=== PATIENT | male | born 1940 | race Caucasian/White ===

== ENCOUNTER 2017-10-08 03:24 | Inpatient (IN) | payer MEDICARE, BC ==
[~2017-10-08] VITALS: Ht 170.2 cm; Wt 88.0 kg
[2017-10-08 05:16] VITALS: BP 138/82
[2017-10-08] MEDS ORDERED: MAGNESIUM HYDROXIDE 30 ML UDC PO PRN (05:30)
[2017-10-08] MEDS ORDERED: MAG HYDROX/AL HYDROX/SIMETH 30 ML UDC PO PRN (05:30)
[2017-10-08] MEDS ORDERED: PIOG15TA8 PO (05:45)
[2017-10-08] MEDS ORDERED: MUPI22OI2 TP (05:45)
[2017-10-08] MEDS ORDERED: HYDR-3974 PO (05:45)
[2017-10-08] MEDS ORDERED: MAGN400T6 PO (05:45)
[2017-10-08] MEDS ORDERED: GLIM4TAB2 PO (05:45)
[2017-10-08] MEDS ORDERED: RIVA10TA PO (05:45)
[2017-10-08] MEDS ORDERED: POTA10CA43 PO (05:45)
[2017-10-08] MEDS ORDERED: SITA100T PO (05:45)
[2017-10-08] MEDS ORDERED: FURO40TA5 PO (05:45)
[2017-10-08 08:00] VITALS: BP 161/98
[2017-10-08] MEDS ORDERED: POTA-88 PO (10:06)
[2017-10-08] MEDS ORDERED: METF500T4 PO (10:06)
[2017-10-08] MEDS ORDERED: ATOR40TA PO (10:06)
[2017-10-08] MEDS ORDERED: CARB200T8 PO (10:07)
[2017-10-08 16:00] VITALS: BP 131/75
[2017-10-08] MEDS ORDERED: HYDROCODONE/APAP 5/325MG 1 EACH TABLET PO PRN (16:00)
[2017-10-08] MEDS ORDERED: METFORMIN 500 MG TABLET PO SCH (17:00)
[2017-10-08] MEDS: CARBAMAZEPINE 200 MG TABLET PO SCH (17:22)
[2017-10-08] MEDS: FUROSEMIDE 40 MG TABLET PO SCH (17:22)
[2017-10-08] MEDS: MAGNESIUM OXIDE 400 MG TABLET PO SCH (17:22)
[2017-10-08] MEDS: PIOGLITAZONE HCL 15 MG TABLET PO SCH (17:22)
[2017-10-08] MEDS: ATORVASTATIN 40 MG TABLET PO SCH (17:22)
[2017-10-08] MEDS: GLIMEPIRIDE 4 MG TABLET PO SCH (17:22)
[2017-10-08] MEDS: RIVAROXABAN 10 MG TABLET PO SCH (17:23)
[2017-10-08 17:57] LABS: CALCIUM, SERUM 8.9 mg/dL (8.5-10.1); CARBON DIOXIDE 27 mmol/L (21-32); CHLORIDE 104 mmol/L (98-107); CREATININE 1.4 mg/dL (0.6-1.3); GLUCOSE 265 mg/dL (74-106); POTASSIUM 4.6 mmol/L (3.5-5.1); SODIUM SERUM 140 mmol/L (136-145); UREA NITROGEN, BLOOD 26 mg/dL (7-18)
[2017-10-08 20:00] VITALS: BP 102/69
[2017-10-08] MEDS: TEMAZEPAM 7.5 MG CAPSULE PO PRN (23:54)
[2017-10-09 07:58] LABS: BASOPHILS % (AUTO) 0.1 % (0.0-2.0); EOSINOPHILS # (AUTO) 0.2 /CMM (0.0-0.7); EOSINOPHILS % (AUTO) 2.6 % (0.0-6.0); HEMATOCRIT 43 % (39-51); HEMOGLOBIN 14.7 g/dL (13.5-17.5); LYMPHOCYTES # (AUTO) 1.8 /CMM (0.8-4.8); LYMPHOCYTES % (AUTO) 23.5 % (20.0-44.0); MEAN CORPUSCULAR HEMOGLOBIN 35 PG (26.0-33.0); MEAN CORPUSCULAR HGB CONC 35 g/dl (31.0-36.0); MEAN CORPUSCULAR VOLUME 101 fL (80-96); MONOCYTES # (AUTO) 0.8 /CMM (0.1-1.30); MONOCYTES % (AUTO) 10.7 % (2.0-12.0); NEUTROPHILS # (AUTO) 4.8 /CMM (1.8-8.9); NEUTROPHILS % (AUTO) 63.1 % (43.0-81.0); PLATELET COUNT (AUTO) 288 /CMM (150-450); RDW COEFFICIENT OF VARIATION 14.1 (11.5-15.0); RED BLOOD CELL COUNT(AUTO) 4.21 MIL/uL (4.5-6.0); WHITE BLOOD COUNT (AUTO) 7.6 K/uL (4.3-11.0)
[2017-10-09 08:00] VITALS: BP 148/74
[2017-10-09 08:00] LABS: CREATININE 1.5 mg/dL (0.6-1.3)
[2017-10-09 08:15] LABS: CHOLESTEROL 141 mg/dL (<200); HDL CHOLESTEROL 48 mg/dL (40-60); LDL 70 mg/dL (0-99); TRIGLYCERIDES 176 mg/dL (30-150)
[2017-10-09 08:16] LABS: ALANINE AMINOTRANSFERASE 30 U/L (12-78); ALBUMIN 2.7 g/dL (3.4-5.0); ALKALINE PHOSPHATASE 81 U/L (46-116); ASPARTATE AMINOTRANSFERASE 25 U/L (15-37); BILIRUBIN,TOTAL 0.4 mg/dL (0.2-1.0); CALCIUM, SERUM 8.9 mg/dL (8.5-10.1); CARBON DIOXIDE 25 mmol/L (21-32); CHLORIDE 105 mmol/L (98-107); CREATININE 1.5 mg/dL (0.6-1.3); GLUCOSE 217 mg/dL (74-106); POTASSIUM 3.5 mmol/L (3.5-5.1); SODIUM SERUM 142 mmol/L (136-145); TOTAL PROTEIN, SERUM 7.2 g/dL (6.4-8.2); UREA NITROGEN, BLOOD 26 mg/dL (7-18)
[2017-10-09] MEDS: PIOGLITAZONE HCL 15 MG TABLET PO SCH (09:16)
[2017-10-09] MEDS: GLIMEPIRIDE 4 MG TABLET PO SCH (09:16)
[2017-10-09] MEDS: POTASSIUM CHLORIDE 20 MEQ TAB.PRT.SR PO SCH (09:16)
[2017-10-09] MEDS: LINAGLIPTIN 5 MG TABLET PO SCH (09:16)
[2017-10-09] MEDS: CARBAMAZEPINE 200 MG TABLET PO SCH ×3 (09:16→16:20)
[2017-10-09] MEDS: FUROSEMIDE 40 MG TABLET PO SCH (09:16)
[2017-10-09] MEDS: MAGNESIUM OXIDE 400 MG TABLET PO SCH (09:17)
[2017-10-09 16:00] VITALS: BP 109/73
[2017-10-09] MEDS: risperiDONE 1 MG TABLET PO SCH (16:20)
[2017-10-09] MEDS: RIVAROXABAN 10 MG TABLET PO SCH (16:22)
[2017-10-09] MEDS: ATORVASTATIN 40 MG TABLET PO SCH (17:04)
[2017-10-09 20:00] VITALS: BP 106/67
[2017-10-09] MEDS: TEMAZEPAM 7.5 MG CAPSULE PO PRN (22:02)
[2017-10-10] MEDS: GLIMEPIRIDE 4 MG TABLET PO SCH (08:15)
[2017-10-10] MEDS: FUROSEMIDE 40 MG TABLET PO SCH (08:15)
[2017-10-10] MEDS: PIOGLITAZONE HCL 15 MG TABLET PO SCH (08:15)
[2017-10-10] MEDS: POTASSIUM CHLORIDE 20 MEQ TAB.PRT.SR PO SCH (08:16)
[2017-10-10] MEDS: MAGNESIUM OXIDE 400 MG TABLET PO SCH (08:16)
[2017-10-10] MEDS: LINAGLIPTIN 5 MG TABLET PO SCH (08:16)
[2017-10-10] MEDS: risperiDONE 1 MG TABLET PO SCH ×3 (08:16→21:21)
[2017-10-10] MEDS: CARBAMAZEPINE 200 MG TABLET PO SCH ×3 (08:16→16:41)
[2017-10-10 08:44] VITALS: BP 117/71
[2017-10-10] MEDS ORDERED: DEXTROSE 50%-WATER 50 ML DISP.SYRIN IV PRN (10:00)
[2017-10-10] MEDS: INSULIN REGULAR, HUMAN 100 UNIT/ML 3 ML VIAL SQ PRN ×2 (12:38→21:30)
[2017-10-10] MEDS: BLOOD SUGAR DIAGNOSTIC 1 EACH STRIP VI SCH ×3 (12:39→21:22)
[2017-10-10 16:15] VITALS: BP 112/72
[2017-10-10] MEDS: RIVAROXABAN 10 MG TABLET PO SCH (16:39)
[2017-10-10] MEDS: ATORVASTATIN 40 MG TABLET PO SCH (17:39)
[2017-10-10] MEDS: *INSULIN REGULAR(HUMULIN R)HUM 100 UNIT/ML VIAL SQ PRN (17:42)
[2017-10-10 19:58] VITALS: BP 111/62
[2017-10-10] MEDS: INSULIN GLARGINE, 100 UNIT/ML CARTRIDGE SQ SCH (21:31)
[2017-10-10] MEDS: TEMAZEPAM 7.5 MG CAPSULE PO PRN (23:56)
[2017-10-11 08:00] VITALS: BP 156/95
[2017-10-11] MEDS: LINAGLIPTIN 5 MG TABLET PO SCH (08:32)
[2017-10-11] MEDS: BLOOD SUGAR DIAGNOSTIC 1 EACH STRIP VI SCH ×4 (08:32→21:44)
[2017-10-11] MEDS: GLIMEPIRIDE 4 MG TABLET PO SCH (08:33)
[2017-10-11] MEDS: POTASSIUM CHLORIDE 20 MEQ TAB.PRT.SR PO SCH (08:33)
[2017-10-11] MEDS: risperiDONE 1 MG TABLET PO SCH ×3 (08:33→22:00)
[2017-10-11] MEDS: FUROSEMIDE 40 MG TABLET PO SCH (08:33)
[2017-10-11] MEDS: PIOGLITAZONE HCL 15 MG TABLET PO SCH (08:34)
[2017-10-11] MEDS: CARBAMAZEPINE 200 MG TABLET PO SCH ×3 (08:36→16:45)
[2017-10-11] MEDS: MAGNESIUM OXIDE 400 MG TABLET PO SCH (08:36)
[2017-10-11] MEDS: INSULIN REGULAR, HUMAN 100 UNIT/ML 3 ML VIAL SQ PRN ×3 (08:40→18:13)
[2017-10-11 16:00] VITALS: BP 149/95
[2017-10-11] MEDS: ATORVASTATIN 40 MG TABLET PO SCH (16:43)
[2017-10-11] MEDS: RIVAROXABAN 10 MG TABLET PO SCH (16:44)
[2017-10-11] MEDS: INSULIN LISPRO/ASPART 100 UNIT/ML CARTRIDGE SQ SCH (18:14)
[2017-10-11 19:51] VITALS: BP 113/49
[2017-10-11] MEDS ORDERED: IPRATROPIUM NEB FS 0.5 MG/2.5 ML AMPUL.NEB ONE (21:06)
[2017-10-11] MEDS ORDERED: ALBUTEROL FS 2.5 MG/0.5 ML VIAL.NEB ONE (21:06)
[2017-10-11] MEDS: INSULIN GLARGINE, 100 UNIT/ML CARTRIDGE SQ SCH (22:00)
[2017-10-12 08:00] VITALS: BP 129/74
[2017-10-12] MEDS: FUROSEMIDE 40 MG TABLET PO SCH (08:10)
[2017-10-12] MEDS: BLOOD SUGAR DIAGNOSTIC 1 EACH STRIP VI SCH ×4 (08:10→21:47)
[2017-10-12] MEDS: PIOGLITAZONE HCL 15 MG TABLET PO SCH (08:10)
[2017-10-12] MEDS: POTASSIUM CHLORIDE 20 MEQ TAB.PRT.SR PO SCH (08:10)
[2017-10-12] MEDS: CARBAMAZEPINE 200 MG TABLET PO SCH ×3 (08:10→16:31)
[2017-10-12] MEDS: MAGNESIUM OXIDE 400 MG TABLET PO SCH (08:10)
[2017-10-12] MEDS: GLIMEPIRIDE 4 MG TABLET PO SCH (08:11)
[2017-10-12] MEDS: LINAGLIPTIN 5 MG TABLET PO SCH (08:16)
[2017-10-12] MEDS: INSULIN LISPRO/ASPART 100 UNIT/ML CARTRIDGE SQ SCH ×2 (08:18→16:56)
[2017-10-12] MEDS: INSULIN REGULAR, HUMAN 100 UNIT/ML 3 ML VIAL SQ PRN ×3 (08:20→16:55)
[2017-10-12] MEDS: risperiDONE 1 MG TABLET PO SCH ×3 (09:53→21:02)
[2017-10-12 16:13] VITALS: BP 119/78
[2017-10-12] MEDS: RIVAROXABAN 10 MG TABLET PO SCH (16:31)
[2017-10-12] MEDS: ATORVASTATIN 40 MG TABLET PO SCH (17:02)
[2017-10-12 20:18] VITALS: BP 134/76
[2017-10-12] MEDS: INSULIN GLARGINE, 100 UNIT/ML CARTRIDGE SQ SCH (21:47)
[2017-10-13 08:00] VITALS: BP 153/71
[2017-10-13] MEDS: GLIMEPIRIDE 4 MG TABLET PO SCH (08:41)
[2017-10-13] MEDS: BLOOD SUGAR DIAGNOSTIC 1 EACH STRIP VI SCH ×4 (08:41→22:10)
[2017-10-13] MEDS: POTASSIUM CHLORIDE 20 MEQ TAB.PRT.SR PO SCH (08:41)
[2017-10-13] MEDS: CARBAMAZEPINE 200 MG TABLET PO SCH ×3 (08:41→17:14)
[2017-10-13] MEDS: FUROSEMIDE 40 MG TABLET PO SCH (08:42)
[2017-10-13] MEDS: MAGNESIUM OXIDE 400 MG TABLET PO SCH (08:42)
[2017-10-13] MEDS: PIOGLITAZONE HCL 15 MG TABLET PO SCH (08:42)
[2017-10-13] MEDS: LINAGLIPTIN 5 MG TABLET PO SCH (08:42)
[2017-10-13] MEDS: risperiDONE 1 MG TABLET PO SCH ×3 (08:42→21:57)
[2017-10-13] MEDS: INSULIN LISPRO/ASPART 100 UNIT/ML CARTRIDGE SQ SCH ×2 (09:04→17:34)
[2017-10-13] MEDS: INSULIN REGULAR, HUMAN 100 UNIT/ML 3 ML VIAL SQ PRN ×3 (09:07→17:36)
[2017-10-13 16:00] VITALS: BP 139/73
[2017-10-13] MEDS: RIVAROXABAN 10 MG TABLET PO SCH (17:14)
[2017-10-13] MEDS: BENZTROPINE MESYLATE (1 MG) 1 MG TABLET PO SCH (17:31)
[2017-10-13] MEDS: ATORVASTATIN 40 MG TABLET PO SCH (17:58)
[2017-10-13 19:59] VITALS: BP 135/88
[2017-10-13] MEDS: INSULIN GLARGINE, 100 UNIT/ML CARTRIDGE SQ SCH (22:01)
[2017-10-13] MEDS: *INSULIN REGULAR(HUMULIN R)HUM 100 UNIT/ML VIAL SQ PRN (22:02)
[2017-10-14] MEDS: IPRATROPIUM NEB FS 0.5 MG/2.5 ML AMPUL.NEB NEB PRN ×2 (01:46→19:51)
[2017-10-14] MEDS: ALBUTEROL FS 2.5 MG/0.5 ML VIAL.NEB NEB PRN ×2 (01:46→19:51)
[2017-10-14 08:00] VITALS: BP 144/71
[2017-10-14] MEDS: risperiDONE 1 MG TABLET PO SCH ×3 (08:10→21:35)
[2017-10-14] MEDS: POTASSIUM CHLORIDE 20 MEQ TAB.PRT.SR PO SCH (08:10)
[2017-10-14] MEDS: PIOGLITAZONE HCL 15 MG TABLET PO SCH (08:10)
[2017-10-14] MEDS: MAGNESIUM OXIDE 400 MG TABLET PO SCH (08:10)
[2017-10-14] MEDS: CARBAMAZEPINE 200 MG TABLET PO SCH ×3 (08:10→16:22)
[2017-10-14] MEDS: FUROSEMIDE 40 MG TABLET PO SCH (08:10)
[2017-10-14] MEDS: BENZTROPINE MESYLATE (1 MG) 1 MG TABLET PO SCH ×2 (08:10→16:22)
[2017-10-14] MEDS: GLIMEPIRIDE 4 MG TABLET PO SCH (08:10)
[2017-10-14] MEDS: LINAGLIPTIN 5 MG TABLET PO SCH (08:10)
[2017-10-14] MEDS: INSULIN LISPRO/ASPART 100 UNIT/ML CARTRIDGE SQ SCH ×2 (08:16→17:13)
[2017-10-14] MEDS: INSULIN REGULAR, HUMAN 100 UNIT/ML 3 ML VIAL SQ PRN ×2 (08:18→12:48)
[2017-10-14] MEDS: BLOOD SUGAR DIAGNOSTIC 1 EACH STRIP VI SCH ×4 (09:44→21:35)
[2017-10-14 16:00] VITALS: BP 131/68
[2017-10-14] MEDS: RIVAROXABAN 10 MG TABLET PO SCH (16:24)
[2017-10-14] MEDS: ACETAMINOPHEN 325 MG TABLET PO PRN (16:29)
[2017-10-14] MEDS: ATORVASTATIN 40 MG TABLET PO SCH (18:22)
[2017-10-14 19:45] VITALS: BP 128/71
[2017-10-14 20:00] VITALS: BP 128/71
[2017-10-14] MEDS: *INSULIN REGULAR(HUMULIN R)HUM 100 UNIT/ML VIAL SQ PRN (21:37)
[2017-10-14] MEDS: INSULIN GLARGINE, 100 UNIT/ML CARTRIDGE SQ SCH (21:38)
[2017-10-15] MEDS: BLOOD SUGAR DIAGNOSTIC 1 EACH STRIP VI SCH ×4 (07:35→22:32)
[2017-10-15] MEDS: INSULIN REGULAR, HUMAN 100 UNIT/ML 3 ML VIAL SQ PRN ×4 (08:18→17:43)
[2017-10-15] MEDS: INSULIN LISPRO/ASPART 100 UNIT/ML CARTRIDGE SQ SCH ×2 (08:18→17:42)
[2017-10-15] MEDS: MAGNESIUM OXIDE 400 MG TABLET PO SCH (08:27)
[2017-10-15] MEDS: BENZTROPINE MESYLATE (1 MG) 1 MG TABLET PO SCH ×2 (08:27→16:14)
[2017-10-15] MEDS: FUROSEMIDE 40 MG TABLET PO SCH (08:27)
[2017-10-15] MEDS: POTASSIUM CHLORIDE 20 MEQ TAB.PRT.SR PO SCH (08:27)
[2017-10-15] MEDS: PIOGLITAZONE HCL 15 MG TABLET PO SCH (08:27)
[2017-10-15] MEDS: CARBAMAZEPINE 200 MG TABLET PO SCH ×3 (08:28→16:15)
[2017-10-15] MEDS: risperiDONE 1 MG TABLET PO SCH ×3 (08:28→22:00)
[2017-10-15] MEDS: LINAGLIPTIN 5 MG TABLET PO SCH (08:28)
[2017-10-15 08:29] VITALS: BP 131/77
[2017-10-15] MEDS: GLIMEPIRIDE 4 MG TABLET PO SCH (08:32)
[2017-10-15 15:26] VITALS: BP 130/75
[2017-10-15] MEDS: RIVAROXABAN 10 MG TABLET PO SCH (16:17)
[2017-10-15] MEDS: ALBUTEROL FS 2.5 MG/0.5 ML VIAL.NEB NEB PRN (17:22)
[2017-10-15] MEDS: IPRATROPIUM NEB FS 0.5 MG/2.5 ML AMPUL.NEB NEB PRN (17:23)
[2017-10-15] MEDS: ATORVASTATIN 40 MG TABLET PO SCH (17:29)
[2017-10-15 18:00] VITALS: BP 122/67
[2017-10-15] MEDS: ACETAMINOPHEN 325 MG TABLET PO PRN (18:13)
[2017-10-15] MEDS ORDERED: AZITHROMYCIN 250 MG TABLET PO ONE (18:30)
[2017-10-15] MEDS: DOXYCYCLINE HYCLATE (100 MG) 100 MG TABLET PO SCH (19:54)
[2017-10-15 20:00] VITALS: BP 116/58
[2017-10-15] MEDS: INSULIN GLARGINE, 100 UNIT/ML CARTRIDGE SQ SCH (22:36)
[2017-10-15] MEDS: *INSULIN REGULAR(HUMULIN R)HUM 100 UNIT/ML VIAL SQ PRN (22:36)
[2017-10-16] MEDS: ACETAMINOPHEN 325 MG TABLET PO PRN (06:58)
[2017-10-16 07:13] LABS: BASOPHILS % (AUTO) 0.1 % (0.0-2.0); HEMATOCRIT 39 % (39-51); HEMOGLOBIN 13.5 g/dL (13.5-17.5); LYMPHOCYTES # (AUTO) 1.3 /CMM (0.8-4.8); LYMPHOCYTES % (AUTO) 8.9 % (20.0-44.0); MEAN CORPUSCULAR HEMOGLOBIN 35 PG (26.0-33.0); MEAN CORPUSCULAR HGB CONC 35 g/dl (31.0-36.0); MEAN CORPUSCULAR VOLUME 101 fL (80-96); MONOCYTES # (AUTO) 1.1 /CMM (0.1-1.30); MONOCYTES % (AUTO) 7.2 % (2.0-12.0); NEUTROPHILS # (AUTO) 12.3 /CMM (1.8-8.9); NEUTROPHILS % (AUTO) 83.8 % (43.0-81.0); PLATELET COUNT (AUTO) 300 /CMM (150-450); RDW COEFFICIENT OF VARIATION 14.2 (11.5-15.0); RED BLOOD CELL COUNT(AUTO) 3.86 MIL/uL (4.5-6.0); WHITE BLOOD COUNT (AUTO) 14.7 K/uL (4.3-11.0)
[2017-10-16 07:33] LABS: B-TYPE NATRIURETIC PEPTIDE 420 PG/ML (0-125); CALCIUM, SERUM 8.8 mg/dL (8.5-10.1); CARBON DIOXIDE 24 mmol/L (21-32); CHLORIDE 106 mmol/L (98-107); CREATININE 1.8 mg/dL (0.6-1.3); GLUCOSE 208 mg/dL (74-106); MAGNESIUM 1.9 mg/dL (1.8-2.4); PHOSPHORUS 3.4 mg/dL (2.5-4.9); POTASSIUM 4.1 mmol/L (3.5-5.1); SODIUM SERUM 142 mmol/L (136-145); UREA NITROGEN, BLOOD 28 mg/dL (7-18)
[2017-10-16] MEDS: BLOOD SUGAR DIAGNOSTIC 1 EACH STRIP VI SCH ×4 (07:52→21:25)
[2017-10-16 08:00] VITALS: BP 114/69
[2017-10-16] MEDS: DOXYCYCLINE HYCLATE (100 MG) 100 MG TABLET PO SCH ×2 (09:28→21:06)
[2017-10-16] MEDS: MAGNESIUM OXIDE 400 MG TABLET PO SCH (09:28)
[2017-10-16] MEDS: BENZTROPINE MESYLATE (1 MG) 1 MG TABLET PO SCH ×2 (09:28→16:35)
[2017-10-16] MEDS: FUROSEMIDE 40 MG TABLET PO SCH (09:29)
[2017-10-16] MEDS: POTASSIUM CHLORIDE 20 MEQ TAB.PRT.SR PO SCH (09:29)
[2017-10-16] MEDS: PIOGLITAZONE HCL 15 MG TABLET PO SCH (09:29)
[2017-10-16] MEDS: LINAGLIPTIN 5 MG TABLET PO SCH (09:29)
[2017-10-16] MEDS: CARBAMAZEPINE 200 MG TABLET PO SCH ×3 (09:29→16:35)
[2017-10-16] MEDS: risperiDONE 1 MG TABLET PO SCH ×3 (09:29→21:06)
[2017-10-16] MEDS: GLIMEPIRIDE 4 MG TABLET PO SCH (09:30)
[2017-10-16] MEDS: INSULIN LISPRO/ASPART 100 UNIT/ML CARTRIDGE SQ SCH ×2 (09:35→17:00)
[2017-10-16] MEDS: INSULIN REGULAR, HUMAN 100 UNIT/ML 3 ML VIAL SQ PRN ×2 (09:37→13:37)
[2017-10-16 09:44] LABS: BAND % (MANUAL) 14 % (0.0-5.0); LYMPHOCYTES % (MANUAL) 9 % (16-48); MONOCYTES % (MANUAL) 7 % (0-11.0); NEUTROPHILS % (MANUAL) 70 (42-76)
[2017-10-16 16:00] VITALS: BP 95/56
[2017-10-16] MEDS: RIVAROXABAN 10 MG TABLET PO SCH (16:36)
[2017-10-16] MEDS: LACTOBACILLUS RHAMNOSUS GG 1 EACH CAP.SPRINK PO SCH (16:36)
[2017-10-16] MEDS: ATORVASTATIN 40 MG TABLET PO SCH (16:36)
[2017-10-16] MEDS: AZITHROMYCIN 250 MG TABLET PO SCH (18:45)
[2017-10-16 20:00] VITALS: BP 118/71
[2017-10-16] MEDS: INSULIN GLARGINE, 100 UNIT/ML CARTRIDGE SQ SCH (21:30)
[2017-10-17] MEDS: TEMAZEPAM 7.5 MG CAPSULE PO PRN ×2 (00:34→22:53)
[2017-10-17] MEDS: clonazePAM 0.5 MG TABLET PO PRN ×2 (01:36→14:09)
[2017-10-17] MEDS: ACETAMINOPHEN 325 MG TABLET PO PRN (05:01)
[2017-10-17] MEDS: ALBUTEROL FS 2.5 MG/0.5 ML VIAL.NEB NEB PRN (05:28)
[2017-10-17] MEDS: IPRATROPIUM NEB FS 0.5 MG/2.5 ML AMPUL.NEB NEB PRN (05:28)
[2017-10-17] MEDS: INSULIN REGULAR, HUMAN 100 UNIT/ML 3 ML VIAL SQ PRN ×3 (07:55→17:01)
[2017-10-17] MEDS: BLOOD SUGAR DIAGNOSTIC 1 EACH STRIP VI SCH ×4 (07:55→22:01)
[2017-10-17 08:00] VITALS: BP 121/64
[2017-10-17] MEDS: POTASSIUM CHLORIDE 20 MEQ TAB.PRT.SR PO SCH (09:00)
[2017-10-17] MEDS: CARBAMAZEPINE 200 MG TABLET PO SCH ×3 (09:00→16:37)
[2017-10-17] MEDS: FUROSEMIDE 40 MG TABLET PO SCH (09:00)
[2017-10-17] MEDS: DOXYCYCLINE HYCLATE (100 MG) 100 MG TABLET PO SCH ×2 (09:00→21:59)
[2017-10-17] MEDS: BENZTROPINE MESYLATE (1 MG) 1 MG TABLET PO SCH ×2 (09:00→16:37)
[2017-10-17] MEDS: AZITHROMYCIN 250 MG TABLET PO SCH (09:01)
[2017-10-17] MEDS: PIOGLITAZONE HCL 15 MG TABLET PO SCH (09:01)
[2017-10-17] MEDS: risperiDONE 1 MG TABLET PO SCH ×3 (09:01→21:59)
[2017-10-17] MEDS: LACTOBACILLUS RHAMNOSUS GG 1 EACH CAP.SPRINK PO SCH ×2 (09:01→16:37)
[2017-10-17] MEDS: LINAGLIPTIN 5 MG TABLET PO SCH (09:01)
[2017-10-17] MEDS: GLIMEPIRIDE 4 MG TABLET PO SCH (09:03)
[2017-10-17] MEDS: MAGNESIUM OXIDE 400 MG TABLET PO SCH (09:06)
[2017-10-17] MEDS: INSULIN LISPRO/ASPART 100 UNIT/ML CARTRIDGE SQ SCH ×2 (09:15→17:03)
[2017-10-17 16:00] VITALS: BP 98/56
[2017-10-17] MEDS: RIVAROXABAN 10 MG TABLET PO SCH (16:37)
[2017-10-17] MEDS: ATORVASTATIN 40 MG TABLET PO SCH (17:04)
[2017-10-17 20:01] VITALS: BP 126/65
[2017-10-17] MEDS: INSULIN GLARGINE, 100 UNIT/ML CARTRIDGE SQ SCH (22:09)
[2017-10-18 08:00] VITALS: BP 153/73
[2017-10-18] MEDS: INSULIN REGULAR, HUMAN 100 UNIT/ML 3 ML VIAL SQ PRN ×2 (08:19→13:24)
[2017-10-18] MEDS: MAGNESIUM OXIDE 400 MG TABLET PO SCH (08:29)
[2017-10-18] MEDS: risperiDONE 1 MG TABLET PO SCH (08:29)
[2017-10-18] MEDS: FUROSEMIDE 40 MG TABLET PO SCH (08:29)
[2017-10-18] MEDS: POTASSIUM CHLORIDE 20 MEQ TAB.PRT.SR PO SCH (08:29)
[2017-10-18] MEDS: DOXYCYCLINE HYCLATE (100 MG) 100 MG TABLET PO SCH (08:30)
[2017-10-18] MEDS: LINAGLIPTIN 5 MG TABLET PO SCH (08:30)
[2017-10-18] MEDS: BENZTROPINE MESYLATE (1 MG) 1 MG TABLET PO SCH (08:30)
[2017-10-18] MEDS: PIOGLITAZONE HCL 15 MG TABLET PO SCH (08:30)
[2017-10-18] MEDS: CARBAMAZEPINE 200 MG TABLET PO SCH ×2 (08:30→13:13)
[2017-10-18] MEDS: LACTOBACILLUS RHAMNOSUS GG 1 EACH CAP.SPRINK PO SCH (08:30)
[2017-10-18] MEDS: BLOOD SUGAR DIAGNOSTIC 1 EACH STRIP VI SCH ×2 (08:31→13:13)
[2017-10-18] MEDS: INSULIN LISPRO/ASPART 100 UNIT/ML CARTRIDGE SQ SCH (08:33)
[2017-10-18] MEDS: GLIMEPIRIDE 4 MG TABLET PO SCH (09:06)
[2017-10-18] MEDS: ACETAMINOPHEN 325 MG TABLET PO PRN (13:14)
[2017-10-18 16:00] VITALS: BP 116/70
== END 2017-10-18 16:00 | DRG 885 ==
LOC: GPS 04:34
PROVIDERS: ADMIT Psychiatry & Neurology Psychiatry; ATTEND Internal Medicine
DX: F29 Unspecified psychosis not due to a substance or known physiological condition (principal); E43 Unspecified severe protein-calorie malnutrition; N17.0 Acute kidney failure with tubular necrosis; E11.65 Type 2 diabetes mellitus with hyperglycemia; J15.9 Unspecified bacterial pneumonia; E66.9 Obesity, unspecified; E78.5 Hyperlipidemia, unspecified; G47.00 Insomnia, unspecified; I10 Essential (primary) hypertension; I25.10 Atherosclerotic heart disease of native coronary artery without angina pectoris; J20.9 Acute bronchitis, unspecified; Z79.899 Other long term (current) drug therapy; Z73.6 Limitation of activities due to disability; Z68.30 Body mass index [BMI] 30.0-30.9, adult; Z79.84 Long term (current) use of oral hypoglycemic drugs
CPT/HCPCS: 31720; 36415; 71045-TC; 80048-TC; 80053-TC; 80061-TC; 82565-TC; 82962-TC; 83735-TC; 83880; 84100-TC; 85025-TC; 87081-TC; 92611-TC; J1815; L0172

== ENCOUNTER 2017-10-18 16:56 | Inpatient (IN) | payer MEDICARE, BC ==
[~2017-10-18] VITALS: Ht 170.2 cm; Wt 90.7 kg
[2017-10-18 16:00] VITALS: BP 116/70
--- NOTE | 2017-10-18 16:00 | NUR ---
m/s wool dyer: notes pt was brought up via [facility] from [facility] accompanied by staff. pt is not register yet, unable to start admitting process. kept pt comfortable. oriented to room and surroundings. instructed to call for assistance. will continue to monitor.
--- NOTE | 2017-10-18 16:30 | NUR ---
m/s mangle catcher: notes dr. cuevas here and informed md re: admission.
[~2017-10-18 16:56] MED LIST: ATOR40TA PO; CARB200T8 PO; FURO40TA5 PO; GLIM4TAB2 PO; HYDR-3974 PO; MAGN400T6 PO; METF500T4 PO; PIOG15TA8 PO; POTA-88 PO; RIVA10TA PO; SITA100T PO
[2017-10-18 17:00] VITALS: BP 116/70
--- NOTE | 2017-10-18 17:50 | NUR ---
m/s muck boss: notes still awaiting for dr. cuevas to put in orders. left another message to md via voice mail.
--- NOTE | 2017-10-18 18:20 | NUR ---
m/s shuttle buggy operator: notes inserted iv to left forearm, gauge #22.
[2017-10-18] MEDS ORDERED: Z GUARD REMEDY 2 OZ OINT TP PRN (18:30)
[2017-10-18] MEDS ORDERED: HYDROCODONE/APAP 5/325MG 1 EACH TABLET PO PRN (18:30)
[2017-10-18] MEDS ORDERED: MAGNESIUM HYDROXIDE 30 ML UDC PO PRN (18:30)
[2017-10-18] MEDS ORDERED: ZOLPIDEM TARTRATE 5 MG TABLET PO PRN (18:30)
[2017-10-18] MEDS ORDERED: ONDANSETRON HCL/PF 4 MG/2 ML VIAL IVP PRN (18:30)
[2017-10-18] MEDS ORDERED: DEXTROSE 50%-WATER 50 ML DISP.SYRIN IV PRN (18:30)
[2017-10-18] MEDS ORDERED: ALBUTEROL FS 2.5 MG/3 ML VIAL.NEB NEB PRN (18:30)
[2017-10-18] MEDS ORDERED: MAG HYDROX/AL HYDROX/SIMETH 30 ML UDC PO PRN (18:30)
--- NOTE | 2017-10-18 19:00 | NUR ---
RN OPENING NOTES PT AWAKE AND RESTING IN BED. PT IS CONFUSED. PT IS COOPERATIVE. NO COMPLAINTS OF PAIN, DISTRESS, OR SOB AT THIS TIME. PT HAS A LEFT FOREARM #22, INTACT AND PATENT. PT IS ON 3L VIA NC. SAFETY PRECAUTIONS IN PLACE, BED IN LOWEST LOCKED POSITION, X2 SIDE RAILS UP, CALL LIGHT WITHIN REACH. WILL CONTINUE TO MONITOR.
[2017-10-18] MEDS: ZOSYN IVPB 4.5 G in IV D5W 50ml IV SCH (19:52)
[2017-10-18 20:00] VITALS: BP 138/75
[2017-10-18] MEDS: Z GUARD REMEDY 2 OZ OINT TP SCH (21:00)
[2017-10-18] MEDS: *INSULIN REGULAR(HUMULIN R)HUM 100 UNIT/ML VIAL SQ PRN (22:03)
[2017-10-18] MEDS: ENOXAPARIN SODIUM 40 MG/0.4 ML DISP.SYRIN SQ SCH (22:04)
[2017-10-18] MEDS: BLOOD SUGAR DIAGNOSTIC 1 EACH STRIP VI SCH (22:04)
[2017-10-19] MEDS ORDERED: PIPERACILLIN /TAZOBACTAM 3.375 G in IV D5W 50 ML IV SCH ×2
[2017-10-19] MEDS: ZOSYN IVPB 4.5 G in IV D5W 50ml IV SCH (02:47)
[2017-10-19 06:11] LABS: BASOPHILS # (AUTO) 0.1 /CMM (0.0-0.2); BASOPHILS % (AUTO) 0.8 % (0.0-2.0); EOSINOPHILS # (AUTO) 0.1 /CMM (0.0-0.7); EOSINOPHILS % (AUTO) 1.1 % (0.0-6.0); HEMATOCRIT 39 % (39-51); HEMOGLOBIN 13.3 g/dL (13.5-17.5); LYMPHOCYTES # (AUTO) 1.1 /CMM (0.8-4.8); LYMPHOCYTES % (AUTO) 9.9 % (20.0-44.0); MEAN CORPUSCULAR HEMOGLOBIN 35 PG (26.0-33.0); MEAN CORPUSCULAR HGB CONC 34 g/dl (31.0-36.0); MEAN CORPUSCULAR VOLUME 102 fL (80-96); MONOCYTES # (AUTO) 0.8 /CMM (0.1-1.30); NEUTROPHILS # (AUTO) 9.3 /CMM (1.8-8.9); NEUTROPHILS % (AUTO) 81.2 % (43.0-81.0); PLATELET COUNT (AUTO) 425 /CMM (150-450); RDW COEFFICIENT OF VARIATION 14.4 (11.5-15.0); RED BLOOD CELL COUNT(AUTO) 3.87 MIL/uL (4.5-6.0); WHITE BLOOD COUNT (AUTO) 11.5 K/uL (4.3-11.0)
[2017-10-19 06:15] LABS: CALCIUM, SERUM 9.2 mg/dL (8.5-10.1); CARBON DIOXIDE 24 mmol/L (21-32); CHLORIDE 109 mmol/L (98-107); CREATININE 1.5 mg/dL (0.6-1.3); GLUCOSE 191 mg/dL (74-106); MAGNESIUM 2.2 mg/dL (1.8-2.4); PHOSPHORUS 3.8 mg/dL (2.5-4.9); POTASSIUM 4.3 mmol/L (3.5-5.1); SODIUM SERUM 146 mmol/L (136-145); UREA NITROGEN, BLOOD 27 mg/dL (7-18)
[2017-10-19] MEDS: *INSULIN REGULAR(HUMULIN R)HUM 100 UNIT/ML VIAL SQ PRN ×2 (06:38→21:47)
[2017-10-19] MEDS: BLOOD SUGAR DIAGNOSTIC 1 EACH STRIP VI SCH ×4 (06:43→21:46)
--- NOTE | 2017-10-19 07:59 | NUR ---
MS RN Opening Note received bedside SBAR report on the patient. Patient is A/O x1, confused, but cooperative, asleep, easily awaken in bed. Bed is locked, in lowest position, side rails up x3, bed alarm is on. Call light within reach. Educated to call for assistance using the call ligh. Denies pain/discomfort at this time. Chest is rising equally, bilaterally. All needs are met at this time. Will continue to assess/monitor throughout the shift.
[2017-10-19 08:00] VITALS: BP 114/70
--- NOTE | 2017-10-19 08:08 | NUR ---
RN CLOSING NOTES PT AWAKE AND RESTING IN BED. PT IS CONFUSED. PT IS COOPERATIVE. NO COMPLAINTS OF PAIN, DISTRESS, OR SOB AT THIS TIME. PT HAS A LEFT FOREARM #22, INTACT AND PATENT. PT IS ON 3L VIA NC. SAFETY PRECAUTIONS IN PLACE, BED IN LOWEST LOCKED POSITION, X2 SIDE RAILS UP, CALL LIGHT WITHIN REACH. WILL ENDORSE TO DAY SHIFT NURSE FOR CONTINUITY OF CARE.
--- NOTE | 2017-10-19 08:35 | NUR ---
PT AT THE BEDSIDE. PATIENT REFUSED. PT STATED HE WILL RE-ATTEMPT AGAIN LATER.
[2017-10-19] MEDS: Z GUARD REMEDY 2 OZ OINT TP SCH ×2 (10:09→21:48)
--- NOTE | 2017-10-19 11:11 | NUR ---
WOUND CARE CONSULT: PT PRESENTS WITH REDNESS AND SOME EXCORIATED AREAS TO GROIN AND ABDOMINAL FOLDS, PRESENT ON ADMISSION. RECOMMENDATIONS MADE FOR SKIN PROTECTION. DISCUSSED WITH NURSING STAFF. CURRENT JOSE SCORE IS 14. WILL SEE PRN. FONTANEZ IN AGREEMENT WITH PLAN OF CARE. Addendum: 10/19/17 at 1112 by ASHER SALOMON WNDNU Amended: Links added.
[2017-10-19] MEDS: INSULIN REGULAR, HUMAN 100 UNIT/ML 3 ML VIAL SQ PRN ×2 (12:42→17:02)
--- NOTE | 2017-10-19 12:44 | NUR ---
PATIENT'S INSULIN MISPLACED. ADMINISTERING ONCE AVAILABLE. ZOSYN STILL NOT DELIVERED BY THE PHARMACY.
[2017-10-19] MEDS: PIPERACILLIN /TAZOBACTAM 3.375 G in IV D5W 50 ML IV SCH ×3 (13:10→23:02)
[2017-10-19] MEDS ORDERED: hydrALAZINE HCL 25 MG TABLET PO PRN (13:30)
[2017-10-19 16:00] VITALS: BP 121/71
[2017-10-19] MEDS: NYSTATIN CREAM 15 GM TUBE TP SCH (16:56)
--- NOTE | 2017-10-19 19:14 | NUR ---
MS RN Closing Note Gave bedside SBAR report on the patient. Patient is A/O x1, confused, forgetful but cooperative. Patient asleep, easily awaken in bed. Bed is locked, in lowest position, side rails up x3, bed alarm is on. Call light within reach. Educated to call for assistance using the call light. Denies pain/discomfort at this time. Chest is rising equally, bilaterally. Denies pain/discomfort at this time. All needs are met at this time. Skin care performed. Mediations administered as ordered with patient tolerating well. Endorsed to the 3rd grade reading teacher nurse for [employer].
--- NOTE | 2017-10-19 19:40 | NUR ---
RN INITIAL NOTES: RECEIVED REPORT FORM GEORGE ALMANZAR, PT IN BED, A/O X1, RESPIRATION EVEN AND UNLABORED, NO FACIAL GRIMACE NOTED, LFA IV ACCESS PATENT AND FLUSHING WELL, ON HL. BLE OFFLOADED. BED ALARM SECURED. BED IN LOWEST POSITION. WILL CONTINUE MONITORING PT
[2017-10-19 20:00] VITALS: BP 126/71
[2017-10-19] MEDS: ENOXAPARIN SODIUM 40 MG/0.4 ML DISP.SYRIN SQ SCH (21:47)
--- NOTE | 2017-10-19 21:48 | NUR ---
BS 129: BS 129, NO INSULIN COVERAGE GIVEN PER SLIDING SCALE, WILL MONITOR PT FOR ANY S/S OF HYPOGLYCEMIA
--- NOTE | 2017-10-19 22:34 | NUR ---
SNACK: SNACK PROVIDED TO THE PT AT THIS TIME, JELL-O AND CRANBERRY JUICE. PT ATE 100%, ASPIRATION PROTOCOL FOLLOWED. NO S/S OF ASPIRATION NOTED.
[2017-10-20] MEDS ORDERED: CLON0.5T PO (02:15)
[2017-10-20] MEDS ORDERED: RISP0.5T5 PO (02:16)
[2017-10-20] MEDS ORDERED: RISP1TAB7 PO (02:16)
[2017-10-20 02:45] VITALS: BP 107/66
[2017-10-20] MEDS: NYSTATIN CREAM 15 GM TUBE TP SCH ×2 (04:11→16:05)
[2017-10-20] MEDS: PIPERACILLIN /TAZOBACTAM 3.375 G in IV D5W 50 ML IV SCH ×4 (05:28→23:22)
[2017-10-20] MEDS: INSULIN REGULAR, HUMAN 100 UNIT/ML 3 ML VIAL SQ PRN ×4 (06:02→22:05)
[2017-10-20] MEDS: BLOOD SUGAR DIAGNOSTIC 1 EACH STRIP VI SCH ×4 (06:02→22:05)
--- NOTE | 2017-10-20 06:04 | NUR ---
BS 216: BS 216 COVERED WITH 6UNITS OF INSULIN PER SLIDING SCALE
--- NOTE | 2017-10-20 06:39 | NUR ---
RN CLOSING NOTES: PT IN BED, REMAINS A/O X1, ON 2L VIA NC RESPIRATION EVEN AND UNLABORED, NO FACIAL GRIMACE NOTED, APPEARS CALM AND COMFORTABLE, IV ACCESS REMAINS PATENT AND FLUSHING WELL, ON HL. BLE KEPT OFFLOADED. REFUSING SCD. VS REMAINS STABLE, NEEDS ATTENDED. SAFETY PRECAUTIONS FOR FALL REMAINS ENGAGE, CALL LIGHT IN REACH, WILL ENDORSE TO DAY RN FOR WIL.
--- NOTE | 2017-10-20 07:32 | NUR ---
MS RN: INITIAL NOTE RECEIVED PT A/OX3. NO DISTRESS NOTED. NO SOB NOTED. ON ROOM AIR SATING AT 96%. NO PAIN NOTED. CONTINENT. BRP. SKIN INTACT. AMBULATORY. R FA#22 SL. NO IV FLUIDS RUNNING. NO REDNESS OR BLEEDING NOTED. RESTING COMFORTABLY IN BED. CALL LIGHT WITHIN REACH.
--- NOTE | 2017-10-20 07:36 | NUR ---
MS RN: INITIAL NOTE RECEIVED PT A/OX1. CONFUSED. USES DIAPER. INCONTINENT. TRIES TO GET OUT OF BED. UNABLE TO DUE TO WEAKNESS. BED ALARM ON. FALL PRECAUTIONS IN PLACE. NEAR THE NURSING STATION. NO DISTRESS NOTED. NO SOB NOTED. NO PAIN NOTED. L FA #22 SL. NO IV FLUIDS RUNNING. SITE CLEAR AND PATENT. RESTING COMFORTABLY IN BED. CALL LIGHT WITHIN REACH.
[2017-10-20 08:00] VITALS: BP 117/63
[2017-10-20 08:03] LABS: CALCIUM, SERUM 9.1 mg/dL (8.5-10.1); CARBON DIOXIDE 25 mmol/L (21-32); CHLORIDE 106 mmol/L (98-107); CREATININE 1.5 mg/dL (0.6-1.3); GLUCOSE 206 mg/dL (74-106); POTASSIUM 3.8 mmol/L (3.5-5.1); SODIUM SERUM 143 mmol/L (136-145); UREA NITROGEN, BLOOD 26 mg/dL (7-18)
[2017-10-20 08:18] LABS: BASOPHILS % (AUTO) 0.4 % (0.0-2.0); EOSINOPHILS # (AUTO) 0.3 /CMM (0.0-0.7); EOSINOPHILS % (AUTO) 2.9 % (0.0-6.0); HEMATOCRIT 38 % (39-51); HEMOGLOBIN 12.7 g/dL (13.5-17.5); LYMPHOCYTES # (AUTO) 1.8 /CMM (0.8-4.8); LYMPHOCYTES % (AUTO) 17.4 % (20.0-44.0); MEAN CORPUSCULAR HEMOGLOBIN 34 PG (26.0-33.0); MEAN CORPUSCULAR HGB CONC 34 g/dl (31.0-36.0); MEAN CORPUSCULAR VOLUME 102 fL (80-96); MONOCYTES # (AUTO) 0.6 /CMM (0.1-1.30); MONOCYTES % (AUTO) 5.3 % (2.0-12.0); NEUTROPHILS # (AUTO) 7.8 /CMM (1.8-8.9); PLATELET COUNT (AUTO) 465 /CMM (150-450); RDW COEFFICIENT OF VARIATION 14.4 (11.5-15.0); RED BLOOD CELL COUNT(AUTO) 3.73 MIL/uL (4.5-6.0); WHITE BLOOD COUNT (AUTO) 10.6 K/uL (4.3-11.0)
[2017-10-20] MEDS: Z GUARD REMEDY 2 OZ OINT TP SCH ×2 (08:45→21:14)
[2017-10-20 16:00] VITALS: BP 118/70
--- NOTE | 2017-10-20 18:37 | NUR ---
MS RN: CLOSING NOTE PT TOOK ALL MEDICATIONS ON TIME. NO ADVERSE REACTIONS NOTED. NO SOB NOTED. ON 2L NC SATING AT 94%. NO PAIN NOTED. NO DISTRESS NOTED. A/OX1-2. SLIGHTLY FORGETFUL AND CONFUSED. INCONTINENT. USES DIAPER AND BSC. L FA #22 HL. SITE CLEAR AND PATENT. NO REDNESS OR BLEEDING NOTED. BED ALARM IN PLACE. FALL PRECAUTIONS IN PLACE. INSULIN GIVEN PER SLIDING SCALE. RESTING COMFORTABLY IN BED. CALL LIGHT WITHIN REACH. CONTACTED [facility] ABOUT MED RECON.
[2017-10-20 20:00] VITALS: BP 124/72
--- NOTE | 2017-10-20 20:09 | NUR ---
RN INITIAL NOTES: PT RESTING IN BED, A/O X1,NO ACUTE DISTRESS NOTED, RESPIRATION EVEN AND UNLABORED, NO FACIAL GRIMACE NOTED, LFA IV ACCESS PATENT AND FLUSHING WELL, ON HL. BLE OFFLOADED. BED ALARM SECURED. BED IN LOWEST POSITION. WILL CONTINUE MONITORING PT
[2017-10-20 21:00] VITALS: BP 123/72
[2017-10-20] MEDS: ENOXAPARIN SODIUM 40 MG/0.4 ML DISP.SYRIN SQ SCH (21:00)
--- NOTE | 2017-10-20 21:08 | NUR ---
RN NOTES PT. REFUSED LOVENEX 40 MG , ENCOURAGED X3 STILL REFUSED , ENCOURAGED X3 STILL REFUSED , WILL CONTINUE TO ENCOURAGED TO COMPLY WITH MD REGIMEN FOR MD REGIMEN.
[2017-10-21] MEDS: NYSTATIN CREAM 15 GM TUBE TP SCH ×2 (03:42→17:05)
[2017-10-21] MEDS: PIPERACILLIN /TAZOBACTAM 3.375 G in IV D5W 50 ML IV SCH ×3 (05:34→17:06)
[2017-10-21] MEDS: BLOOD SUGAR DIAGNOSTIC 1 EACH STRIP VI SCH ×3 (06:51→17:05)
[2017-10-21] MEDS: INSULIN REGULAR, HUMAN 100 UNIT/ML 3 ML VIAL SQ PRN ×3 (06:53→17:06)
--- NOTE | 2017-10-21 07:36 | NUR ---
MS RN: INITIAL NOTE RECEIVED PT A/OX1-2. MS. BEDREST. BRP TO [facility] WITH ASSIST. INCONTINENT. L FA #22 RUNNING NO REDNESS OR BLEEDING NOTED. NO PAIN NOTED. NO SOB NOTED. NO DISTRESS NOTED. ON 2L NC SATING AT 95%. BED ALARM ON. FALL PRECAUTIONS IN PLACE. RESTING COMFORTABLY IN BED. CALL LIGHT WITHIN REACH.
[2017-10-21 08:00] VITALS: BP 110/75
[2017-10-21] MEDS: ACETAMINOPHEN 325 MG TABLET PO PRN ×2 (08:14→14:36)
[2017-10-21] MEDS: Z GUARD REMEDY 2 OZ OINT TP SCH (08:15)
[2017-10-21 16:00] VITALS: BP 122/51
[2017-10-21] MEDS ORDERED: CEFT2VIA13 IJ (16:44)
[2017-10-21] MEDS ORDERED: VANC1PLA11 IV (16:44)
--- NOTE | 2017-10-21 18:35 | NUR ---
MS RN: CLOSING NOTE PT TOOK ALL MEDICATIONS ON TIME. NO ADVERSE REACTIONS NOTED. NO SOB NOTED. ON 2L NC SATING AT 94%. A/X1-2. MS. CONTINENT. USES DIAPER URINAL AND BED SIDE COMMODE. L FA #22 HL. SITE CLEAR. PATENT. INSULIN GIVEN PER SLIDING SCALE. TO D/C BACK TO [facility] TODAY AT 1930 PICKUP. ALL D/C INFORMATION PRINTED AND SIGNED BY TWO RNS DUE TO UNABLE PT SIGNING. REPORT GIVEN TO [facility]. ALL BELONGINGS ACCOUNTED FOR. WILL ENDORSE TO NEXT SHIFT. PT REFUSED PICTURES. VERIFIED BY TWO RNS. NO WOUNDS. JUST BRUISING. RESTING COMFORTABLY IN BED. CALL LIGHT WITHIN REACH.
--- NOTE | 2017-10-21 19:25 | NUR ---
MS/CONSTRUCTION SAFETY MANAGER; RECEIVED PT IN BED AWAKE, ALERT AND ORIENTED TO HIS NAME, BIRTHDAY THE DAY FOR TODAY AND NOT THE PLACE WHERE HE IS NOW. HL INTACT. WITH O2 2LNCON. DENIES PAIN. .
--- NOTE | 2017-10-21 19:30 | NUR ---
MS/DECKHAND MAINTENANCE ; AMBULANCE CAME TO APPLICATION SUPPORT TECHNICIAN THE PT FOR DC. HL REMOVED AND THE ARM NAME BAND. ALL DC PAPERS WERE ALL READY AND GIVEN TO THE AMBULANCE PERSONNEL , NNEKA AND I ALSO GAVE HIM THE REPORTS.
--- NOTE | 2017-10-21 19:50 | NUR ---
MS/SUPERVISOR DYER; PT LEFT THE UNIT BY AMBULANCE WITH BELONGINGS. ALSO DC PAPERS GIVEN TO THE AMBULANCE NNEKA.
[2017-10-21 20:00] VITALS: BP 109/64
== END 2017-10-21 19:50 | DRG 193 ==
LOC: MED 16:56
PROVIDERS: ADMIT Internal Medicine; ATTEND Internal Medicine
DX: J15.9 Unspecified bacterial pneumonia (principal); N17.0 Acute kidney failure with tubular necrosis; E87.0 Hyperosmolality and hypernatremia; I25.10 Atherosclerotic heart disease of native coronary artery without angina pectoris; E66.9 Obesity, unspecified; E11.65 Type 2 diabetes mellitus with hyperglycemia; E78.5 Hyperlipidemia, unspecified; E11.22 Type 2 diabetes mellitus with diabetic chronic kidney disease; N18.9 Chronic kidney disease, unspecified; J20.9 Acute bronchitis, unspecified; I12.9 Hypertensive chronic kidney disease with stage 1 through stage 4 chronic kidney disease, or unspecified chronic kidney disease; F29 Unspecified psychosis not due to a substance or known physiological condition; Z73.6 Limitation of activities due to disability; Z68.31 Body mass index [BMI] 31.0-31.9, adult; D72.829 Elevated white blood cell count, unspecified; E86.9 Volume depletion, unspecified; L98.8 Other specified disorders of the skin and subcutaneous tissue; L30.4 Erythema intertrigo
CPT/HCPCS: 36415; 80048-TC; 82962-TC; 83735-TC; 84100-TC; 85025-TC; 87081-TC; 97116-TC; 97530-TC; J1650; J1815; J2543; J7050; J7060

== ENCOUNTER 2017-11-07 11:41 | Emergency (ER) | payer MEDICARE, BC ==
[~2017-11-07] VITALS: Ht 175.3 cm; Wt 83.9 kg
[~2017-11-07 11:41] MED LIST changes: +CEFT2VIA13 IJ; +CLON0.5T PO; +METF-440 PO; -METF500T4 PO; +RISP0.5T5 PO; +RISP1TAB7 PO; +VANC1PLA11 IV
--- NOTE | 2017-11-07 11:47 | NUR ---
BB PRIVATE EMS FROM [facility] FOR RT EYEBROW LAC AND LEFT HAND SKIN TEAR S/P UNWITNESSED FALL AT 0915AM, FOUND LYING IN THE BATHROOM FLOOR
[2017-11-07] MEDS ORDERED: LIDOCAINE HCL/PF 1% 30 ML SDV ONE (12:09)
[2017-11-07] MEDS ORDERED: TDAP [DIPH/PERTUSSIS/TET] 0.5 ML VIAL IM ONE ×2 (12:22→12:30)
[2017-11-07] MEDS ORDERED: LIDOCAINE 0.5% HCL 50 ML VIAL IJ ONE (12:30)
[2017-11-07] MEDS ORDERED: GELATIN SPONGE,ABSORBABLE 1 SPONGE SPONGE TP ONE ×2 (14:02→14:18)
--- NOTE | 2017-11-07 14:16 | NUR ---
SET UP BLS RIG WITH [facility] - TRIP#[id number] - ETA 35MIN
--- NOTE | 2017-11-07 14:30 | NUR ---
DR SINGH AT BEDSIDE FOR SUTURE ON LACERATION RT EYEBROW
--- NOTE | 2017-11-07 14:42 | NUR ---
VERBAL ORDER GEL FOAM FROM DR SINGH
[2017-11-07 15:23] VITALS: BP 144/86
--- NOTE | 2017-11-07 15:23 | NUR ---
Patient discharged to home in stable condition. Written and verbal after care instructions given. Patient verbalizes understanding of instruction.
== END 2017-11-07 15:39 | disposition home or self-care (01) ==
LOC: ER 11:42
DX: S01.81XA Laceration without foreign body of other part of head, initial encounter (principal); S61.412A Laceration without foreign body of left hand, initial encounter; E11.9 Type 2 diabetes mellitus without complications; F20.9 Schizophrenia, unspecified; F41.9 Anxiety disorder, unspecified; E78.5 Hyperlipidemia, unspecified; Z79.84 Long term (current) use of oral hypoglycemic drugs; W18.39XA Other fall on same level, initial encounter; Y93.89 Activity, other specified; Y92.89 Other specified places as the place of occurrence of the external cause; Y99.8 Other external cause status
CPT/HCPCS: 70450-TC; 70486-TC; 90715; A4606; A6402; J3490; Z7610